=== PATIENT | female | born 1985 | race Caucasian/White ===

== ENCOUNTER 2020-11-10 21:47 | Emergency (ER) | payer BC, SELFPAY ==
[2020-11-10 21:49] VITALS: BP 153/85; PULSE 114; RESP 18; TEMP 37.1; O2SAT 100
[2020-11-10] MEDS: methylPREDNISolone SOD SUCC 125 MG VIAL IV PUSH (22:19)
[2020-11-10] MEDS: diphenhydrAMINE HCl INJ 50 MG/ML VIAL IV PUSH (22:19)
[2020-11-10] MEDS: FAMOTIDINE 20 MG/2 ML VIAL IV PUSH (22:19)
[2020-11-10 22:27] VITALS: BP 141/95; PULSE 99; RESP 18; TEMP 36.2; O2SAT 100
--- NOTE | 2020-11-10 23:20 | ED.GENADULT ---
HPI - General Adult General Chief complaint: Allergic Reaction Stated complaint: allergic reaction after taking antibiotics Time Seen by Provider: 11/10/20 22:00 History of Present Illness HPI narrative: Patient is a 34-year-old female presents emerged department with complaint of allergic reaction. Patient reports she was seen by her primary care physician for a spider bite on her right upper extremity and was started on Bactrim. Patient states this evening she started itching and noticed that she had hives that appeared over her body. Patient reports the symptoms have improved somewhat by the time she arrived to the emergency department patient denies shortness of breath denies angioedema. Related Data Allergies Allergy/AdvReac Type Severity Reaction Status Date / Time Sulfa (Sulfonamide Allergy Hives Verified 11/10/20 21:52 Antibiotics) Pecan Allergy Unknown Hives Uncoded 11/10/20 21:52 Review of Systems Review of Systems: A 10 system review of systems was completed on the patient and is negative except for what is stated in the HPI. Nursing and ancillary documentation was reviewed. Exam Narrative: GENERAL: Well-appearing, well-nourished, and in no acute distress. HEAD: Normocephalic, atraumatic. EYES: PERRLA and EOMI. ENT: Nares clear, no rhinorrhea or epistaxis. Mucous membranes moist. NECK: Supple. CHEST: Clear to auscultation. No respiratory distress. HEART: Regular rate and rhythm. No murmur heard. Normal peripheral pulses. ABDOMEN: Soft, nontender, nondistended, normal active bowel sounds. EXTREMITIES: Normal range of motion. No edema. Slight redness present on the right upper extremity superior to the antecubital fossa SKIN: Warm, dry, no rash. NEURO: No focal deficits. Alert and oriented x3. PSYCH: Normal mood and affect. Course Vital Signs Vital signs: Vital Signs Temperature 37.1 C 11/10/20 21:49 Pulse Rate 114 H 11/10/20 21:49 Respiratory Rate 18 11/10/20 21:49 Blood Pressure 153/85 H 11/10/20 21:49 Pulse Oximetry 100 11/10/20 21:49 Temperature 36.2 C L 11/10/20 22:27 Pulse Rate 99 11/10/20 22:27 Respiratory Rate 18 11/10/20 22:27 Blood Pressure 141/95 H 11/10/20 22:27 Pulse Oximetry 100 11/10/20 22:27 Medical Decision Making Vital Signs Vital Signs: Vital Signs Temperature 37.1 C 11/10/20 21:49 Pulse Rate 114 H 11/10/20 21:49 Respiratory Rate 18 11/10/20 21:49 Blood Pressure 153/85 H 11/10/20 21:49 Pulse Oximetry 100 11/10/20 21:49 Temperature 36.2 C L 11/10/20 22:27 Pulse Rate 99 11/10/20 22:27 Respiratory Rate 18 11/10/20 22:27 Blood Pressure 141/95 H 11/10/20 22:27 Pulse Oximetry 100 11/10/20 22:27 Discharge Plan Discharge Clinical Impression: Urticaria, Cellulitis of arm, right Allergic reaction Qualifiers: Encounter type: initial encounter Qualified Code(s): T78.40XA - Allergy, unspecified, initial encounter Adverse reaction to drug Qualifiers: Encounter type: initial encounter Qualified Code(s): T50.905A - Adverse effect of unspecified drugs, medicaments and biological substances, initial encounter Patient Disposition: Home, Self-Care Condition: Stable Instructions: Antibiotic Form, Cellulitis (ED), Antibiotic Medication Allergy (ED), General Allergic Reaction (ED) Prescriptions: New methylprednisolone [Medrol (Enio)] 4 mg tablets,dose pack See Rx Instructions .ROUTE .COMPLEX Qty: 21 RF: 0 doxycycline hyclate 100 mg tablet 100 mg PO BID Qty: 14 RF: 0 Follow-up/Referrals: PHYSICIAN NOT ON STAFF,NONSTAFF [Primary Care Provider] - Time of Disposition: 23:27
[2020-11-10 23:47] VITALS: BP 130/84; PULSE 110; RESP 18; O2SAT 99
== END 2020-11-10 23:47 | disposition home or self-care (01) ==
PROVIDERS: Emergency Provider Emergency Medicine
DX: L50.0 Allergic urticaria (principal); L03.113 Cellulitis of right upper limb; T36.8X5A Adverse effect of other systemic antibiotics, initial encounter
CPT/HCPCS: 96374; 96375; 99284; J1200; J2930